=== PATIENT | female | born 1960 | race Hispanic/Latino ===

== ENCOUNTER 2016-09-16 07:02 | Day surgery (SDC) | payer BC ==
[~2016-09-16 07:02] MED LIST: NACL BACTERIOSTATIC INFILTRATI ONE
[2016-09-16] MEDS ORDERED: MARCAINE 0.25% INFILTRATI ONE (07:12)
[2016-09-16] MEDS ORDERED: DIPRIVAN 10 MG/ML IV ONE (07:43)
[2016-09-16] MEDS ORDERED: DECADRON ONE ×2 (07:44→09:45)
[2016-09-16] MEDS ORDERED: ZOFRAN ONE ×2 (07:44→10:17)
[2016-09-16] MEDS ORDERED: ZEMURON IV ONE (07:44)
[2016-09-16] MEDS ORDERED: XYLOCAINE MPF 2% ONE (07:45)
[2016-09-16] MEDS ORDERED: DILAUDID ONE ×2 (07:47→11:08)
[2016-09-16] MEDS ORDERED: NACL BACTERIOSTATIC INFILTRATI ONE (07:50)
--- NOTE | 2016-09-16 08:26 | Anesthesia Consultation ---
Anesthesia Consult and Med Hx Date of service: 09/16/16 - Airway Anesthetic Teeth Evaluation: Caps, Crowns ROM Head & Neck: Adequate Mental/Hyoid Distance: Adequate Mallampati Class: Class I Intubation Access Assessment: Good - Cardiac Exam Cardiac Exam: RRR - Pre-Operative Health Status ASA Pre-Surgery Classification: ASA2 Proposed Anesthetic Plan: General - Pulmonary Hx Smoking: Yes (CIGARETTES 1 PPD X 29 YRS, QUIT 10 YRS AGO) Hx Sleep Apnea: No - Central Nervous System Hx Back Pain: Yes (AND NECK PAIN) Hx Psychiatric Problems: No - Other Systems Hx Cancer: No - Additional Comments Anesthesia Medical History Comments: Multiple previous surgeries with no complications.
--- NOTE | 2016-09-16 08:26 | Anesthesia Day of Surgery ---
Anesthesia Day of Surgery - Day of Surgery Patient Examined: Yes Patient H&P Reviewed: Yes Patient is NPO: Yes
[2016-09-16] MEDS ORDERED: MARCAINE-EPI 0.25%-1:200,000 INFILTRATI ONE ×3 (08:30→09:00)
[2016-09-16] MEDS: NACL 0.9% 1000 ML 1,000 ML IV SCH ×2 (08:34→08:39)
[2016-09-16] MEDS ORDERED: LOVENOX SUB-Q ONE (09:00)
[2016-09-16] MEDS ORDERED: DECADRON IV NR (09:00)
[2016-09-16] MEDS ORDERED: PEPCID IV ONE (09:00)
[2016-09-16] MEDS ORDERED: NACL 0.9% IR ONE (09:00)
[2016-09-16] MEDS ORDERED: SUBLIMAZE IV ONE (09:00)
[2016-09-16] MEDS ORDERED: VANCOMYCIN/NS 1 GM/250 ML 1 GM/250 ML BAG IV NR (09:00)
[2016-09-16] MEDS ORDERED: ePHEDrine SULFATE ONE (09:15)
[2016-09-16] MEDS ORDERED: QUELICIN ONE (09:45)
[2016-09-16] MEDS ORDERED: NEOSTIGMINE ONE (09:53)
[2016-09-16] MEDS ORDERED: ROBINUL ONE (09:53)
--- NOTE | 2016-09-16 10:37 | Post Anesthesia Evaluation ---
- Post Anesthesia Evaluation Patient Participated: Yes Airway Patent: Yes Stable Respiratory Function: Yes Nausea/Vomiting: No Temp > 96.8F: Yes Pain Manageable: Yes Adequeate Hydration: Yes Anesthesia Complications: No
--- NOTE | 2016-09-16 10:47 | Short Stay Summary ---
Short Stay Documentation Date of service: 09/16/16 Narrative H&P: see attached H&P - Allergies and Medications Current Medications: Allergies adhesive Allergy (Verified 09/13/16 11:31) Rash cefuroxime axetil [From Ceftin] Allergy (Verified 09/13/16 11:31) Itching ciprofloxacin [From Cipro] Allergy (Verified 09/13/16 11:31) Shortness of Breath ciprofloxacin HCl [From Cipro] Allergy (Verified 09/13/16 11:31) Shortness of Breath Iodinated Contrast Media - IV Dye Allergy (Verified 09/13/16 11:31) Rash, mouth tingling povidone-iodine [From Betadine] Allergy (Verified 09/13/16 11:31) causes fluid blisters soap [From Betadine] Allergy (Verified 09/13/16 11:31) causes fluid blisters midazolam HCl [From Versed] Adverse Reaction (Verified 09/13/16 11:31) Memory issues afterwards Home Medications Medication Instructions Recorded Confirmed Last Taken Type Cyanocobalamin (Vitamin B-12) 1,000 mcg IJ QWEEK 09/13/16 09/13/16 09/11/16 History [Physicians Ez Use B-12] Diclofenac Sodium [Voltaren] 100 gm TP PRN PRN 09/13/16 09/16/16 09/13/16 History Ergocalciferol [Vitamin D2] 1 cap PO QWEEK 09/13/16 09/13/16 09/11/16 History Rizatriptan Benzoate [Maxalt] 10 mg PO Q2HR PRN 09/13/16 09/16/16 09/15/16 History SUMAtriptan SUCCINATE [Imitrex] 50 mg PO PRN PRN 09/13/16 09/16/16 2 Months Ago History Tobramycin/Lotepred Etab [Zylet 1 - 2 drop OP TID 09/13/16 09/16/16 1 Week Ago History Eye Drops 0.5/0.3%] Active Medications Sodium Chloride (Nacl 0.9% 1000 Ml) 1,000 mls @ 75 mls/hr IV DIRECT WILLIAM Last Admin: 09/16/16 08:34 Dose: 75 mls/hr - Brief post op/procedure progress note Date of procedure: 09/16/16 Pre-op diagnosis: GERD, paraesophageal hernia Post-op diagnosis: same Procedure: Lap paraesophageal hernia repair, LINX procedure Anesthesia: GETA Findings: 5cm PEH, size 15 LINX Surgeon: ADRIANA SALDAÑA (Ced Mcclure) Estimated blood loss: none Pathology: none Condition: stable - Disposition Condition at discharge: Good Disposition: DISCHARGED TO HOME OR SELFCARE Short Stay Discharge Plan Activity: advance as tolerated Weight Bearing Status: Weight Bear as Tolerated Diet: regular Wound: keep clean and dry Follow up with: ADRIANA SALDAÑA MD [Staff Physician] - 7 Days
[2016-09-16] MEDS ORDERED: ZOFRAN IV ONE (11:00)
[2016-09-16] MEDS: DILAUDID IV PRN ×4 (11:14→11:55)
[2016-09-16] MEDS ORDERED: TORADOL IV PRN (12:30)
[2016-09-16 15:47] VITALS: BP 110/63
--- NOTE | 2016-09-16 19:40 | Operative Report ---
PREOPERATIVE DIAGNOSES: Paraesophageal hernia and gastroesophageal reflux disease. POSTOPERATIVE DIAGNOSES: Paraesophageal hernia and gastroesophageal reflux disease. PROCEDURE: Laparoscopic paraesophageal hernia repair and magnetic augmentation of sphincter device placement. SURGEON: Adelfo Almeida MD PRINCIPAL AUTOMATION ENGINEER: Bekah Mcclure. ANESTHESIA: General anesthesia. ESTIMATED BLOOD LOSS: Minimal. COMPLICATIONS: None. DRAINS: None. SPECIMEN: None. The patient tolerated the procedure well. FINDINGS: A 4-5 cm paraesophageal hiatal hernia and size 15 magnetic sphincter placed without difficulty. INDICATIONS: A 55-year-old female with paraesophageal hernia with symptomatic reflux, here for repair. DESCRIPTION OF PROCEDURE: The patient taken to OR, placed supine on the operating room table. Once anesthesia was obtained, anterior abdominal wall was prepped and draped in sterile fashion. Due to her previous midline incision, placed in the left upper quadrant a 5 mm trocar through an Optiview trocar into the peritoneal cavity. Visualization revealed no adhesions. After this was placed a 5 mm right upper quadrant port, a 5 mm trocar just superior and left to the umbilicus. The 5 mm left upper quadrant trocar was changed out to a 10 mm trocar in a left lateral 5 mm trocar. An epigastric incision was made for a Mer retractor to elevate the left lobe of liver. The patient was found to have the obvious paraesophageal hernia. The greater curvature of stomach was actually in the chest, it was brought down with ____ traction. The inner of the lesser sac along the medial aspect of the stomach and to along the lesser curvature and the lesser sac to expose the caudate lobe of liver and right crura of the diaphragm. Dissected at the right crura, all of the hiatal sac was completely dissected away. Dissected anteriorly as well as to the left side of the hernia sac was completely then reduced back into the peritoneal cavity. The vagus nerve was visualized and found to be intact at the end of the procedure. The hiatus was completely exposed circumferentially to expose the large defect of the hiatal hernia. The hiatal hernia defect was approximately 4 cm. It was approximated primarily with 0 Ethibond in a [id number] fashion x 3 sutures, found to have good approximation with no tension and no stricture at the hiatus. After this was completed, good esophageal length was also noted. We dissected the mediastinum as well to get better esophageal length to place in appropriate anatomy in the abdominal cavity. After this was completed and after adequate hemostasis was completed, the posterior vagus nerve was visualized and a window was made between the posterior aspect of the esophagus and the vagus and with the help of a [place] drain opening the space, we sized the distal esophagus just above the gastroesophageal junction with ____ sizer. The patient was found to have esophagus diameter appropriate for size 15 ____ . A 15 ____ was then brought to the left upper trocar site and circled around the esophagus and secured in position and found to be in good position and locked appropriately. The sutures were attached to the ____ were removed. The ____ was found to be in appropriate position. All the [place] drain was removed. All retractors removed. CO2 evacuated. All ports were removed and all skin incisions closed in subcuticular fashion. Dermabond was placed on the incision. The patient tolerated procedure well. JOB# [id number] ALLYN/KORY
== END 2016-09-16 13:20 | disposition home or self-care (01) ==
LOC: OR 07:02
PROVIDERS: ATTEND Surgery
DX: K44.9 Diaphragmatic hernia without obstruction or gangrene (principal); K21.9 Gastro-esophageal reflux disease without esophagitis; Z87.891 Personal history of nicotine dependence
CPT/HCPCS: 43281; J0330; J1100; J1170; J1650; J1885; J2405; J2704; J2710; J3010; J3370; J7030; L8699